=== PATIENT | male | born 1955 | race Caucasian/White ===

== ENCOUNTER 2018-09-23 04:20 | Emergency (ER) | payer OTHER ==
[~2018-09-23] VITALS: Ht 182.9 cm; Wt 90.7 kg
[2018-09-23] MEDS ORDERED: EFFEXOR XR150 MG PO (04:43)
[2018-09-23] MEDS ORDERED: LIPITOR40 MG PO (04:43)
[2018-09-23] MEDS ORDERED: NORVASC5 MG PO (04:43)
[2018-09-23] MEDS ORDERED: ZESTRIL40 MG PO (04:44)
[2018-09-23] MEDS ORDERED: ASPIR 8181 MG PO (04:44)
[2018-09-23] MEDS ORDERED: OMEPRAZOLE20 M1 PO (04:44)
== END 2018-09-23 06:25 | disposition home or self-care (01) ==
LOC: ED 04:20
DX: F41.0 Panic disorder [episodic paroxysmal anxiety] (principal); K52.9 Noninfective gastroenteritis and colitis, unspecified; R06.4 Hyperventilation; Z91.19 Patient's noncompliance with other medical treatment and regimen; I10 Essential (primary) hypertension; Z88.0 Allergy status to penicillin; Z88.1 Allergy status to other antibiotic agents; Z88.2 Allergy status to sulfonamides
CPT/HCPCS: 80053; 81001; 83735; 85025; 96374; 99283-25; J2405; J7030